=== PATIENT | female | born 1925 | race Two or more races ===

== ENCOUNTER 2016-06-21 23:53 | Inpatient (IN) | payer OTHER ==
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
[2016-06-22] MEDS ORDERED: IPRATROPIUM/ALBUTEROL 3 ML DEYVIAL IH ONE (00:23)
--- NOTE | 2016-06-22 00:27 | CPEKG ---
Heart Rate: 88 RR Interval: 682 P-R Interval: 180 QRSD Interval: 140 QT Interval: 400 QTC Interval: 484 P Parker: -24 QRS Parker: -60 T Wave Parker: 103 EKG Severity - ABNORMAL ECG - EKG Impression: SINUS RHYTHM EKG Impression: RBBB AND LAFB EKG Impression: CONSIDER LEFT VENTRICULAR HYPERTROPHY Electronically Signed By: Estiven Culver 22-Jun-2016 07:29:26
[2016-06-22 00:51] LABS: % IMMATURE GRANULYOCYTES 0.6 % (0.0-1.1); ABSOLUTE IMMATURE GRANULOCYTES 0.05 10^3/uL (0.00-0.10); ADD DIFF? NO; ADD MORPH? NO; ADD SCAN? NO; ATYPICAL LYMPHOCYTE FLAG 0 (0-99); FRAGMENT RBC FLAG 0 (0-99); HEMATOCRIT 35.9 % (38.0-47.0); HEMOGLOBIN 12.3 g/dL (12.6-16.3); LEFT SHIFT FLG 0 (0-99); LIPEMIA HEMOLYSIS FLAG 90 (0-99); MEAN CELL HEMOGLOBIN 36.7 pg (27.9-34.1); MEAN CELL HEMOGLOBIN CONCENTR. 34.3 g/dL (32.4-36.7); MEAN CELL VOLUME 107.2 fL (81.5-99.8); MEAN PLATELET VOLUME 10.2 fL (8.7-11.7); PLATELET CLUMPS FLAG 0 (0-99); PLATELET COUNT 258 10^3/uL (150-400); RED BLOOD CELL COUNT 3.35 10^6/uL (4.18-5.33); RED CELL DISTRIBUTION WIDTH 14.5 % (11.5-15.2)
[2016-06-22 00:54] LABS: BASE EXCESS 2.1 mEq/L (-2.5-2.5); BICARBONATE 26 mEq/L (22-26); MEASURED OXYGEN SATURATION 92 % (92-95); PCO2 41 mmHg (34-38); PO2 66 mmHg (65-75); TCO2 28 mEq/L (23-27)
[2016-06-22 00:54] LABS: ALANINE AMINOTRANSFERASE 29 IU/L (9-52); ALBUMIN 3.9 g/dL (3.5-5.0); ALKALINE PHOSPHATASE 91 IU/L (38-126); ANION GAP 13 mEq/L (8-16); ASPARTATE AMINOTRANSFERASE 44 IU/L (14-46); BILIRUBIN,TOTAL 0.7 mg/dL (0.1-1.4); BILIRUBIN-CONJUGATED 0.5 mg/dL (0.0-0.5); BILIRUBIN-UNCONJUGATED 0.2 mg/dL (0.0-1.1); CALCIUM 9.2 mg/dL (8.5-10.4); CARBON DIOXIDE 28 mEq/l (22-31); CHLORIDE 93 mEq/L (97-110); CREATININE 1.2 mg/dL (0.6-1.0); GLOMERULAR FILTRATION RATE 42; GLUCOSE 92 mg/dL (70-100); POTASSIUM 4.9 mEq/L (3.5-5.2); SODIUM 134 mEq/L (134-144); TOTAL PROTEIN 9.2 g/dL (6.3-8.2)
[2016-06-22 01:03] LABS: INR 1.09 (0.83-1.16)
[2016-06-22 01:14] LABS: TROPONIN I 0.015 ng/mL (0-0.034)
[2016-06-22] MEDS ORDERED: NS 1,000 ML IV ONE (01:15)
[2016-06-22] MEDS ORDERED: IOPAMIDOL (ISOVUE-300) 100 ML BTL IV ONE (01:27)
[2016-06-22] MEDS ORDERED: AZITHROMYCIN IV 500 MG in D5W 250 ML IV ONE (02:00)
[2016-06-22] MEDS ORDERED: ONDANSETRON 4 MG/2 ML VIAL IVP PRN (03:24)
[2016-06-22] MEDS ORDERED: ONDANSETRON DISINTEGRATING 4 MG TAB PO PRN (03:24)
[2016-06-22] MEDS ORDERED: PROMETHAZINE HCL 25 MG/ML INJ IVP PRN (03:24)
[2016-06-22] MEDS ORDERED: ALBUTEROL 3 ML DEYVIAL IH PRN (03:24)
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
[2016-06-22] MEDS ORDERED: IPRATROPIUM/ALBUTEROL 3 ML DEYVIAL ONE (05:55)
[2016-06-22] MEDS ORDERED: ACETYLCYSTEINE 20% IH/PO 30 ML VIAL ONE (05:56)
[2016-06-22] MEDS ORDERED: methylPREDNISolone SOD SUCC 125 MG/2 ML VIAL ONE (05:56)
[2016-06-22] MEDS: methylPREDNISolone SOD SUCC 125 MG/2 ML VIAL IVP SCH ×3 (06:06→17:06)
[2016-06-22] MEDS: IPRATROPIUM/ALBUTEROL 3 ML DEYVIAL IH SCH ×4 (06:06→22:11)
[2016-06-22] MEDS: ACETYLCYSTEINE 10% 30 ML VIAL IH SCH ×4 (06:06→22:11)
[2016-06-22] MEDS ORDERED: ENOXAPARIN 40 MG/0.4 ML SYR SC SCH (09:00)
[2016-06-22] MEDS ORDERED: AZITHROMYCIN IV 500 MG in D5W 250 ML IV SCH ×3 (09:00→21:00)
[2016-06-22] MEDS: ENOXAPARIN 30 MG/0.3 ML SYR SC SCH (10:52)
[2016-06-22] MEDS: FUROSEMIDE 40 MG TAB PO SCH (12:45)
[2016-06-22] MEDS: oxyCODONE IR 5 MG TAB PO PRN ×2 (17:06→23:02)
[2016-06-22] MEDS ORDERED: BENZONATATE 100 MG CAP PO PRN (19:22)
--- NOTE | 2016-06-22 19:22 | HOSPPROG ---
Hospitalist Progress Note Assessment/Plan: H&P by Dr. Ny reviewed. Patient seen and examined. Agree with plan as outlined. I will follow up in am. Objective: Vital Signs Temp Pulse Resp BP Pulse Ox 36.4 C 60 18 119/76 95 06/22/16 16:00 06/22/16 16:45 06/22/16 16:45 06/22/16 16:00 06/22/16 16:45 06/21/16 06/22/16 06/23/16 05:59 05:59 05:59 Intake Total 1410 Balance 1410 PT 14.0 SEC (12.0-15.0) 06/22/16 00:30 INR 1.09 (0.83-1.16) 06/22/16 00:30 ICD10 Worksheet Patient Problems: Problems Problem Status Onset Hypoxia Acute Pneumonia Acute Chronic Disease Mgmt/Transitional Care Acute Diastolic CHF Acute
[2016-06-22] MEDS: METOPROLOL SUCCINATE XR 25 MG TAB PO SCH (23:01)
[2016-06-22] MEDS: ACETAMINOPHEN 325 MG TAB PO PRN (23:02)
[2016-06-23] MEDS: ACETYLCYSTEINE 10% 30 ML VIAL IH SCH ×2 (05:52→11:34)
[2016-06-23] MEDS: IPRATROPIUM/ALBUTEROL 3 ML DEYVIAL IH SCH ×4 (05:52→21:00)
[2016-06-23 05:54] LABS: % IMMATURE GRANULYOCYTES 0.6 % (0.0-1.1); ABSOLUTE IMMATURE GRANULOCYTES 0.03 10^3/uL (0.00-0.10); ADD DIFF? NO; ADD MORPH? NO; ADD SCAN? NO; ATYPICAL LYMPHOCYTE FLAG 30 (0-99); FRAGMENT RBC FLAG 0 (0-99); HEMATOCRIT 30.3 % (38.0-47.0); HEMOGLOBIN 10.6 g/dL (12.6-16.3); LEFT SHIFT FLG 0 (0-99); LIPEMIA HEMOLYSIS FLAG 90 (0-99); MEAN CELL HEMOGLOBIN 37.5 pg (27.9-34.1); MEAN CELL VOLUME 107.1 fL (81.5-99.8); MEAN PLATELET VOLUME 10.2 fL (8.7-11.7); PLATELET CLUMPS FLAG 0 (0-99); PLATELET COUNT 205 10^3/uL (150-400); RED BLOOD CELL COUNT 2.83 10^6/uL (4.18-5.33)
[2016-06-23 06:04] LABS: ANION GAP 7 mEq/L (8-16); CALCIUM 8.9 mg/dL (8.5-10.4); CARBON DIOXIDE 24 mEq/l (22-31); CHLORIDE 95 mEq/L (97-110); CREATININE 0.9 mg/dL (0.6-1.0); GLOMERULAR FILTRATION RATE 59; GLUCOSE 141 mg/dL (70-100); POTASSIUM 4.6 mEq/L (3.5-5.2); SODIUM 126 mEq/L (134-144)
[2016-06-23] MEDS: LEVOTHYROXINE 88 MCG TAB PO SCH (07:05)
[2016-06-23] MEDS ORDERED: NON-FORMULARY NEW DRUG (Omeprazole [Prilosec 20 Mg] 20 MG) PO SCH (09:00)
[2016-06-23] MEDS ORDERED: NS 1,000 ML IV SCH (09:15)
[2016-06-23] MEDS: SPIRONOLACTONE 25 MG TAB PO SCH (09:45)
[2016-06-23] MEDS: VALSARTAN 160 MG TAB PO SCH (09:45)
[2016-06-23] MEDS: predniSONE 20 MG TAB PO SCH (09:45)
[2016-06-23] MEDS: ACETAMINOPHEN 325 MG TAB PO PRN ×2 (09:45→21:07)
[2016-06-23] MEDS: PANTOPRAZOLE SODIUM 40 MG TAB PO SCH (09:45)
[2016-06-23] MEDS: ASPIRIN 81 MG CHEWABLE TAB PO SCH (09:45)
[2016-06-23] MEDS: ENOXAPARIN 30 MG/0.3 ML SYR SC SCH (12:29)
[2016-06-23] MEDS: ENOXAPARIN 40 MG/0.4 ML SYR SC SCH (12:30)
--- NOTE | 2016-06-23 16:19 | HOSPPROG ---
Hospitalist Progress Note Assessment/Plan: * Acute on chronic respiratory failure - improved -baseline 3-4L * Pneumonia -ceftriaxone, azithro * RAD exac -prednisone, nebs * Pulmonary fibrosis / UIP * Dementia -family provides 06/11 care Subjective: Feeling better, less SOB Objective: Vital Signs Temp Pulse Resp BP Pulse Ox 36.5 C 62 20 176/84 H 97 06/23/16 15:10 06/23/16 15:10 06/23/16 15:10 06/23/16 15:10 06/23/16 15:10 Microbiology 06/23/16 12:33 - Final Sputum, Expectorated 06/23/16 09:25 - Final Sputum, Expectorated Sputum Culture - Final Laboratory Results 06/23/16 05:28 06/23/16 05:28 06/22/16 06/23/16 06/24/16 05:59 05:59 05:59 Intake Total 1410 Balance 1410 PT 14.0 SEC (12.0-15.0) 06/22/16 00:30 INR 1.09 (0.83-1.16) 06/22/16 00:30 - Physical Exam Constitutional: no apparent distress, appears nourished, not in pain Cardiovascular: regular rate and rhythym, no murmur, rub, or gallop Respiratory: no respiratory distress, inspiratory crackles, No expiratory wheeze , No rhonchi Gastrointestinal: normoactive bowel sounds, soft, non-tender abdomen, no palpable masses Skin: no rashes or abrasions, no fluctuance, no induration Psychiatric: interacting appropriately, not encephalopathic, poor insight, No agitated ICD10 Worksheet Patient Problems: Problems Problem Status Onset Hypoxia Acute Pneumonia Acute Chronic Disease Mgmt/Transitional Care Acute Diastolic CHF Acute
[2016-06-23] MEDS ORDERED: AZITHROMYCIN 250 MG TAB PO SCH (21:00)
[2016-06-23] MEDS: METOPROLOL SUCCINATE XR 25 MG TAB PO SCH (21:05)
[2016-06-23] MEDS: oxyCODONE IR 5 MG TAB PO PRN (21:07)
[2016-06-24] MEDS: LEVOTHYROXINE 88 MCG TAB PO SCH (05:22)
[2016-06-24 05:37] LABS: % IMMATURE GRANULYOCYTES 0.5 % (0.0-1.1); ABSOLUTE IMMATURE GRANULOCYTES 0.03 10^3/uL (0.00-0.10); ADD DIFF? NO; ADD MORPH? NO; ADD SCAN? NO; ATYPICAL LYMPHOCYTE FLAG 80 (0-99); FRAGMENT RBC FLAG 0 (0-99); HEMATOCRIT 31.8 % (38.0-47.0); HEMOGLOBIN 10.8 g/dL (12.6-16.3); LEFT SHIFT FLG 0 (0-99); LIPEMIA HEMOLYSIS FLAG 90 (0-99); MEAN CELL HEMOGLOBIN 36.1 pg (27.9-34.1); MEAN CELL VOLUME 106.4 fL (81.5-99.8); PLATELET CLUMPS FLAG 0 (0-99); PLATELET COUNT 216 10^3/uL (150-400); RED BLOOD CELL COUNT 2.99 10^6/uL (4.18-5.33); RED CELL DISTRIBUTION WIDTH 13.9 % (11.5-15.2)
[2016-06-24 05:45] LABS: ANION GAP 9 mEq/L (8-16); CALCIUM 9.2 mg/dL (8.5-10.4); CARBON DIOXIDE 27 mEq/l (22-31); CHLORIDE 95 mEq/L (97-110); GLOMERULAR FILTRATION RATE 52; GLUCOSE 98 mg/dL (70-100); POTASSIUM 4.7 mEq/L (3.5-5.2); SODIUM 131 mEq/L (134-144)
[2016-06-24] MEDS: IPRATROPIUM/ALBUTEROL 3 ML DEYVIAL IH SCH ×2 (05:59→10:36)
[2016-06-24 08:04] VITALS: BP 123/51; TEMP 98.8
[2016-06-24] MEDS: ASPIRIN 81 MG CHEWABLE TAB PO SCH (09:38)
[2016-06-24] MEDS: FUROSEMIDE 40 MG TAB PO SCH (09:38)
[2016-06-24] MEDS: predniSONE 20 MG TAB PO SCH (09:38)
[2016-06-24] MEDS: PANTOPRAZOLE SODIUM 40 MG TAB PO SCH (09:38)
[2016-06-24] MEDS: SPIRONOLACTONE 25 MG TAB PO SCH (09:38)
[2016-06-24] MEDS: VALSARTAN 160 MG TAB PO SCH (09:38)
[2016-06-24] MEDS: ENOXAPARIN 40 MG/0.4 ML SYR SC SCH (09:39)
[2016-06-24 10:46] VITALS: PULSE 66; RESP 12; O2SAT 95
--- NOTE | 2016-06-24 11:03 | GDS ---
[f rep st] DISCHARGE SUMMARY DIAGNOSES: 1. Community-acquired pneumonia. 2. Interstitial pulmonary fibrosis with chronic respiratory failure. 3. Coronary artery disease. 4. Diastolic dysfunction. 5. Hypothyroidism. 6. Question acid reflux. HOSPITAL COURSE: The patient is an 89-year-old with a history significant for interstitial pulmonar y fibrosis with chronic respiratory failure who comes in feeling weak and confused. On evaluation, she had a chest and thoracic angiogram which revealed no PE, lymphadenitis, which may be a possible infiltrate in the left lower lobe. She was placed on antibiotics for community-acquired pneumonia. Over the course of her hospitalization, she did improve to a point where her family felt safe taking her home. She was cleared by Physical Therapy. CONDITION ON DISCHARGE: Good. VITAL SIGNS: She is afebrile, heart rate 57, blood pressure 123/51. She is 93% on 4 L and has been afebrile. GENERAL: She is alert. LUNGS: Bilateral crackles. HE ART: Regular. She has no edema. DISCHARGE MEDICATIONS: Please see discharge medication form. She will be discharged on Ceftin and Zithromax as well as Tessalon Perles as needed. She was started on Protonix, will continue that for the short term, and her primary care provider can decide on continuing that long-term or not, as th ere was a question of possible acid reflux contributing to her pulmonary symptoms. FOLLOWUP INSTRUCTIONS: She should follow up with [facility] early next week. Of note, she did have significant cerumen in her right ear without pain, and I did give instructions to clean that o ut. That needs to be checked on her followup appointment as well. Total time spent with the patient and family on day of discharge and coordination of care was 35 min utes. Copy requested to: [facility] /[id number]/MODL
== END 2016-06-24 11:22 | disposition home or self-care (01) | DRG 193 ==
LOC: F3E 06-22 08:00
PROVIDERS: ADMIT Internal Medicine; ATTEND Internal Medicine
DX: J18.9 Pneumonia, unspecified organism (principal); J96.21 Acute and chronic respiratory failure with hypoxia; J84.10 Pulmonary fibrosis, unspecified; E03.9 Hypothyroidism, unspecified; I25.10 Atherosclerotic heart disease of native coronary artery without angina pectoris; I25.2 Old myocardial infarction; I10 Essential (primary) hypertension; Z99.81 Dependence on supplemental oxygen; E87.1 Hypo-osmolality and hyponatremia; K21.9 Gastro-esophageal reflux disease without esophagitis; I50.30 Unspecified diastolic (congestive) heart failure
CPT/HCPCS: 92610-GN; 96365; 97161-GP; 97165-GO; J0456; J0696; J1650; Q9967

== ENCOUNTER 2016-11-21 12:19 | Inpatient (IN) | payer OTHER ==
--- NOTE | 2016-11-21 13:04 | CPEKG ---
Heart Rate: 71 RR Interval: 845 P-R Interval: 196 QRSD Interval: 142 QT Interval: 444 QTC Interval: 483 P Billings: -13 QRS Billings: -50 T Wave Billings: 143 EKG Severity - ABNORMAL ECG - EKG Impression: SINUS RHYTHM EKG Impression: RIGHT BUNDLE BRANCH BLOCK EKG Impression: LVH WITH IVCD AND SECONDARY REPOL ABNRM EKG Impression: LATERAL INFARCT, AGE INDETERMINATE Electronically Signed By: Petra Zaragoza 21-Nov-2016 17:07:12
[2016-11-21 13:19] LABS: % IMMATURE GRANULYOCYTES 0.3 % (0.0-1.1); ABSOLUTE IMMATURE GRANULOCYTES 0.02 10^3/uL (0.00-0.10); ADD DIFF? NO; ADD MORPH? NO; ADD SCAN? NO; ATYPICAL LYMPHOCYTE FLAG 0 (0-99); FRAGMENT RBC FLAG 0 (0-99); HEMATOCRIT 35.6 % (38.0-47.0); HEMOGLOBIN 12.4 g/dL (12.6-16.3); LEFT SHIFT FLG 0 (0-99); LIPEMIA HEMOLYSIS FLAG 90 (0-99); MEAN CELL HEMOGLOBIN 38.2 pg (27.9-34.1); MEAN CELL HEMOGLOBIN CONCENTR. 34.8 g/dL (32.4-36.7); MEAN CELL VOLUME 109.5 fL (81.5-99.8); MEAN PLATELET VOLUME 10.4 fL (8.7-11.7); PLATELET CLUMPS FLAG 0 (0-99); PLATELET COUNT 273 10^3/uL (150-400); RED BLOOD CELL COUNT 3.25 10^6/uL (4.18-5.33); RED CELL DISTRIBUTION WIDTH 13.3 % (11.5-15.2)
[2016-11-21 13:29] LABS: ANION GAP 10 mEq/L (8-16); CALCIUM 10.1 mg/dL (8.5-10.4); CARBON DIOXIDE 27 mEq/l (22-31); CHLORIDE 95 mEq/L (97-110); CREATININE 1.5 mg/dL (0.6-1.0); GLOMERULAR FILTRATION RATE 33; GLUCOSE 104 mg/dL (70-100); POTASSIUM 4.7 mEq/L (3.5-5.2); SODIUM 132 mEq/L (134-144)
[2016-11-21 13:41] LABS: TROPONIN I < 0.012 ng/mL (0-0.034)
--- NOTE | 2016-11-21 15:31 | EDPHY ---
H & P Stated Complaint: Increasing SOB past 2-3 days;cough Time Seen by Provider: 11/21/16 13:18 HPI/ROS: CHIEF COMPLAINT: Short of breath, weakness HISTORY OF PRESENT ILLNESS: This is an 89-year-old female with a history of interstitial pulmonary fibrosis, CAD, and diastolic heart failure on 5 L nasal cannula oxygen chronically. She also has coronary artery disease with diastolic dysfunction. She presents today with worsening shortness of breath, requiring more oxygen at home. She denies chest pain. No recent fever. She has chronic cough, no change. Family members chose to act as interpreters (patient is Kiswahili speaking) and also provided much of the history as the patient has dementia and is a poor historian in general. Patient lives with her daughter. REVIEW OF SYSTEMS: A ten point review of systems was performed and is negative with the exception of the items mentioned in the HPI. ROS obtained from family members and patient. Source: Patient, Family Exam Limitations: Language barrier (Auto Phone Installer available and offered, family members comfortable interpreting) - Personal History Current Tetanus Diphtheria and Acellular Pertussis (TDAP): Unsure - Medical/Surgical History PMH: 1. Interstitial pulmonary fibrosis 2. CAD 3. Diastolic heart failure 4. Dementia 5. GERD 6. HTN 7. PE Hx Asthma: No Hx Chronic Respiratory Disease: Yes Hx Diabetes: No Hx Cardiac Disease: Yes Hx Renal Disease: No Hx Cirrhosis: No Hx Alcoholism: No Hx HIV/AIDS: No Hx Splenectomy or Spleen Trauma: No - Social History Smoking Status: Never smoked Alcohol Use: None Additional Social History: She lives with her daughter. She has 12 children and large extended family in the and [place]. No smoking. No alcohol. - Physical Exam Exam: General: Elderly female. BP 103/58. HR 63. RR 16. T 36.6. O2 sat 97% on 4L oxymask. HEENT: Anicteric. No conjunctival injection. Oropharynx without erythema or edema. Dry mucous membranes.' Neck: Nontender over cervical spine. JVD is present. No lymphadenopathy. Lungs: Distant breath sounds. Crackles bilaterally at bases. Heart: RRR, 2/6 murmur, no rub, no gallop. Abdomen: Soft, nontender, nondistended. Normal bowel sounds. Extremities: No clubbing, cyanosis. No calf tenderness with trace BLE edema. Neuro: Awake, alert. PERRL. EOMI. Tongue midline. Facial expressions symmetric. Moving all four extremities spontaneoulsy. Psych: No agitation. Constitutional: Initial Vital Signs Heart Rate 90 11/21/16 12:20 Respiratory Rate 20 11/21/16 12:20 Blood Pressure 142/96 H 11/21/16 12:20 O2 Sat (%) 95 11/21/16 12:20 O2 Delivery Mode Nasal Cannula O2 (L/minute) 4 Allergies/Adverse Reactions: No Known Allergies Allergy (Verified 06/22/16 00:05) Home Medications: Medication Instructions Recorded Aspirin [Aspirin 81mg (*)] 81 mg PO DAILY 08/14/14 Levothyroxine [Synthroid 88 mcg 88 mcg PO DAILY06 08/14/14 (*)] Calcium Carb W/Vit D [Calcium Carb 500 mg PO BID 06/22/16 W/Vit D 500/200 (*)] Metoprolol Succinate Xr [Toprol Xl 25 mg PO HS 06/22/16 25 mg (*)] Omeprazole [Prilosec 20 mg] 20 mg PO DAILY 06/22/16 Acetaminophen [Tylenol 325mg (*)] 650 mg PO Q4HRS PRN #0 tab 11/23/16 Docusate Sodium [Colace 100 MG (*)] 100 mg PO BID cap 11/23/16 Ipratropium/Albuterol [Duoneb (*)] 3 ml IH QID #60 deyvial 11/23/16 LORazepam [Ativan] 1 mg PO Q6 PRN #30 tablet 11/23/16 morphINE [Roxanol 10 mg/0.5 ml 5 mg PO Q2 #1 btl 11/23/16 oral soln (*)] oxyCODONE IR [Oxycodone Ir (*)] 5 mg PO Q4HRS PRN #30 tab 11/23/16 Medical Decision Making - Diagnostics EKG Interpretation: EKG interpreted by me in [employer]. Compared to previous, no change. RBBB. Imaging Results: CXR reviewed, radiology report reviewed. Interstitial pulmonary disease with element of CHF. Imaging: I viewed and interpreted images myself ED Course/Re-evaluation: 89 year old female with multiple medical problems including interstitial pulmonary fibrosis on O2 at home with worsening shortness of breath. She is requiring 4L per oxymask in the ED to maintain oxygen saturation mid 90s. I suspect worsening of her chronic lung disease along with possible pulmonary edema (per CXR and radiologist's report). She was given a small dose of IV lasix in the ED (she is on diuretics at home). BNP is 1130. Fluid management will require close watching as she also appears dehydrated on exam and has BUN of 47 with creatinine of 1.5. Initial troponin normal. EKG reviewed--sinus, RBBB, no acute ischemic changes. She reportedly has a remote history of PE. I am recommending hospitalization and family agrees. It is my sense that her management at home has become more and more difficult. Code status not known, will need to be addressed. Differential Diagnosis: I considered a ddx of acute on chronic respiratory failure (interstitial lung disease), CHF, ACS, pneumonia, PE. - Data Points Laboratory Results: Laboratory Results 11/21/16 13:05 11/21/16 13:05 Medications Given: Discontinued Medications Albuterol/Ipratropium (Duoneb) 3 ml IH QID HIMANSHU Stop: 05/20/17 20:59 Last Admin: 11/23/16 11:59 Dose: 3 ml Aspirin (Aspirin) 81 mg PO DAILY HIMANSHU Stop: 05/21/17 08:59 Last Admin: 11/23/16 09:33 Dose: 81 mg Docusate Sodium (Colace) 100 mg PO BID HIMANSHU Stop: 05/22/17 11:14 Last Admin: 11/23/16 12:48 Dose: 100 mg Enoxaparin Sodium (Lovenox) 30 mg SC DAILY HIMANSHU Stop: 05/21/17 08:59 Last Admin: 11/23/16 09:37 Dose: 30 mg Furosemide (Lasix Injection) 20 mg IVP EDNOW ONE Stop: 11/21/16 15:33 Last Admin: 11/21/16 16:08 Dose: 20 mg Sodium Chloride (Ns) 1,000 mls @ 75 mls/hr IV CONT HIMANSHU Stop: 11/22/16 10:34 Last Admin: 11/21/16 21:47 Dose: 1,000 mls Levothyroxine Sodium (Synthroid) 88 mcg PO DAILY06 HIMANSHU Stop: 05/21/17 05:59 Last Admin: 11/23/16 06:20 Dose: 88 mcg Metoprolol Succinate (Toprol Xl) 25 mg PO HS HIMANSHU Stop: 05/20/17 20:59 Last Admin: 11/22/16 21:16 Dose: 25 mg Oxycodone HCl (Oxycodone Ir) 5 mg PO Q4HRS PRN PRN Reason: Pain, Severe Able to Take PO Stop: 12/02/16 17:51 Last Admin: 11/23/16 12:58 Dose: 5 mg Pantoprazole Sodium (Protonix) 40 mg PO DAILY HIMANSHU Stop: 05/21/17 08:59 Last Admin: 11/23/16 09:33 Dose: 40 mg Potassium Chloride (Klor-Con) 20 meq PO DAILY HIMANSHU Stop: 05/20/17 16:59 Last Admin: 11/23/16 09:34 Dose: 20 meq Prednisone (Prednisone) 40 mg PO DAILY HIMANSHU Stop: 05/20/17 16:59 Last Admin: 11/22/16 08:49 Dose: 40 mg Departure - Departure Disposition: [facility] Acute Clinical Impression: Acute exacerbation of congestive heart failure Qualifiers: Congestive heart failure type: diastolic Qualified Code(s): I50.33 - Acute on chronic diastolic (congestive) heart failure Acute and chronic respiratory failure Qualifiers: Respiratory failure complication: hypoxia Qualified Code(s): J96.21 - Acute and chronic respiratory failure with hypoxia Condition: Fair
[2016-11-21] MEDS ORDERED: FUROSEMIDE 20 MG/2 ML VIAL IVP ONE (15:32)
[2016-11-21] MEDS ORDERED: ONDANSETRON DISINTEGRATING 4 MG TAB PO PRN (15:59)
[2016-11-21] MEDS ORDERED: ONDANSETRON 4 MG/2 ML VIAL IVP PRN (15:59)
[2016-11-21] MEDS ORDERED: ACETAMINOPHEN 325 MG TAB PO PRN (15:59)
--- NOTE | 2016-11-21 18:02 | GHP ---
[f rep st] HISTORY AND PHYSICAL DATE OF ADMISSION: 11/21/2016 CHIEF COMPLAINT: Shortness of breath. HISTORY OF PRESENT ILLNESS: This patient is an 89-year-old female with a history of advanced interstitial pulmonary fibrosis, as well as coronary artery disease and chronic diastolic heart failure, who presents to the emergency department with worsening shortness of breath and cough. She has been living at home with her daughter. Over the past several days, they have noticed increased dyspnea on exertion. She can only walk a few steps from her chair before she becomes very short of breath. Most of the history is obtained per her daughter, as the patient is not a very good historian. They report a productive cough. There have been no fevers or chills. She has not complained of chest pain, but when I ask her in the emergency department she does report some chest pressure. She uses 5 L of oxygen at home which is her baseline. She has not been followed by a visual journalist for her pulmonary fibrosis. In the emergency department, workup was consistent with the heart failure exacerbation. She was given 20 mg of IV Lasix, and is admitted to the hospital for further management. PAST MEDICAL HISTORY: 1. Chronic hypoxemic respiratory failure secondary to interstitial pulmonary fibrosis, currently using 5 L of oxygen at baseline. 2. Coronary artery disease. 3. Diastolic heart failure. 4. History of CVA. 5. Dementia. 6. GERD. 7. Hypertension. 8. Hypothyroidism. 9. Moderate pulmonary hypertension. 10. History of pulmonary embolism. FAMILY HISTORY: Reviewed and noncontributory. SOCIAL HISTORY: The patient lives with her daughter. She is a lifetime nonsmoker. She has significant secondhand smoke exposure. She denies alcohol or drug use. She is . Had 12 children and a very large extended family in [place]. REVIEW OF SYSTEMS: A 10-point review of systems was performed and is negative, except as per HPI. PHYSICAL EXAMINATION: VITAL SIGNS: Temperature is 36.4, blood pressure 156/85 , heart rate 70, respiratory rate 18, she is 99% on her baseline of 5 L of oxygen. GENERAL: The patient is awake, alert and oriented. Appears fatigued. HEENT: The head is atraumatic, normocephalic. Pupils are equal, round, and reactive to light. Extraocular muscles are intact. Oropharynx is clear. Mucous membranes are moist. NECK: Supple. She has 8+ cm of JVD. HEART: Regular rate and rhythm with a 2/6 systolic ejection murmur. LUNGS: Bilateral crackles custodial up from the bases. There is a mild end-expiratory wheeze. ABDOMEN: Soft, nondistended, nontender, with normoactive bowel sounds. EXTREMITIES: She has trace bilateral lower extremity edema. NEUROLOGIC: Grossly nonfocal. LABORATORY DATA: CBC reveals a normal white count, hemoglobin 12.4, platelets are normal at 273. INR is pending. Basic metabolic panel is remarkable for a sodium of 132, potassium is normal 4.5, chloride 95, BUN 47, creatinine 1.5, blood glucose 104, calcium 10.1. Troponin is negative. NT proBNP is 1130, which is up from 880 five months ago. IMAGING: Chest x-ray is personally reviewed and interpreted. It is consistent with severe interstitial lung disease and extensive honeycombing, as seen on previous CT scans, as well as a suspicion for an element of heart failure with interstitial pulmonary edema. EKG shows normal sinus rhythm with a right bundle branch block. This is unchanged from prior. ASSESSMENT AND PLAN: This patient is an 89-year-old female with a history of interstitial pulmonary fibrosis and coronary artery disease, with chronic diastolic heart failure and chronic hypoxemic respiratory failure, who presents to the emergency department with increasing dyspnea. 1. Acute on chronic hypoxemic respiratory failure. Baseline O2 is 4-5 LPM, on 4 LPM here. She is likely experiencing worsening of her severe pulmonary fibrosis. Chest CT is performed and shows severe interstitial pulmonary fibrosis without alveolar edema, arguing against heart failure. She received IV Lasix in the emergency department. I will defer any further IV Lasix for now , given her elevated BUN and creatinine on arrival and will opt to give some gentle NS overnight. Will give nebs and oral Prednisone for presumed flare of her IPF. She does have a history of pulmonary embolism, although was not tachycardic on arrival. I will check a D-dimer. She is not a candidate for CT pulmonary angiogram, given her elevated creatinine at this time. If her D- dimer is significantly elevated, will consider pursuing a V/Q scan versus treating with heparin empirically tonight and reassessing her renal function in the morning. 2. Coronary artery disease. The patient does complain of some chest pressure. Her initial troponin is negative. There are no acute changes on her EKG. Will trend her troponin. She will be monitored on telemetry. An echo is pending to evaluate for wall motion abnormality. May warrant further risk stratification. 3. Acute kidney injury. As above, she has already received IV Lasix in the ER. Will defer any further IV Lasix for now, gentle IV hydration as above. Will check urine sodium and urine creatinine for further evaluation. I will hold her Aldactone and Diovan. 4. Weakness. PT and OT evaluations are ordered. She may require SNF rehab. CODE STATUS: I did discuss code status with the patient and her family. She wishes to be DNR. This will be honored. Palliative care consult is requested. DISPOSITION: The patient is admitted to inpatient status. She will likely require greater than 48 hours hospitalization for ongoing management of her acute on chronic respiratory failure with associated shortness of breath and overall weakness. /[id number]/MODL MTDD
[2016-11-21] MEDS: POTASSIUM CL 20 MEQ TAB PO SCH (18:08)
[2016-11-21 18:27] LABS: INR 1.07 (0.83-1.16); PROTIME(PATIENT) 13.8 SEC (12.0-15.0)
[2016-11-21] MEDS: predniSONE 20 MG TAB PO SCH (18:31)
[2016-11-21] MEDS: METOPROLOL SUCCINATE XR 25 MG TAB PO SCH (20:54)
[2016-11-21] MEDS ORDERED: NS 1,000 ML IV SCH (21:15)
[2016-11-21] MEDS: IPRATROPIUM/ALBUTEROL 3 ML DEYVIAL IH SCH (21:43)
[2016-11-22 05:16] LABS: HEMATOCRIT 32.2 % (38.0-47.0); HEMOGLOBIN 10.9 g/dL (12.6-16.3); MEAN CELL HEMOGLOBIN 37.7 pg (27.9-34.1); MEAN CELL HEMOGLOBIN CONCENTR. 33.9 g/dL (32.4-36.7); MEAN CELL VOLUME 111.4 fL (81.5-99.8); RED BLOOD CELL COUNT 2.89 10^6/uL (4.18-5.33); RED CELL DISTRIBUTION WIDTH 13.3 % (11.5-15.2)
[2016-11-22 05:38] LABS: ALBUMIN 3.6 g/dL (3.5-5.0); ANION GAP 13 mEq/L (8-16); CALCIUM 9.4 mg/dL (8.5-10.4); CARBON DIOXIDE 24 mEq/l (22-31); CHLORIDE 97 mEq/L (97-110); CREATININE 1.5 mg/dL (0.6-1.0); GLOMERULAR FILTRATION RATE 33; GLUCOSE 105 mg/dL (70-100); POTASSIUM 4.3 mEq/L (3.5-5.2); SODIUM 134 mEq/L (134-144)
[2016-11-22] MEDS: LEVOTHYROXINE 88 MCG TAB PO SCH (05:38)
[2016-11-22] MEDS: IPRATROPIUM/ALBUTEROL 3 ML DEYVIAL IH SCH ×4 (06:01→20:59)
[2016-11-22] MEDS: POTASSIUM CL 20 MEQ TAB PO SCH (08:49)
[2016-11-22] MEDS: PANTOPRAZOLE SODIUM 40 MG TAB PO SCH (08:49)
[2016-11-22] MEDS: predniSONE 20 MG TAB PO SCH (08:49)
[2016-11-22] MEDS: ASPIRIN 81 MG CHEWABLE TAB PO SCH (08:49)
[2016-11-22] MEDS: ENOXAPARIN 30 MG/0.3 ML SYR SC SCH (08:50)
[2016-11-22] MEDS ORDERED: FUROSEMIDE 20 MG/2 ML VIAL IVP SCH (09:00)
[2016-11-22] MEDS ORDERED: NON-FORMULARY NEW DRUG (Omeprazole [Prilosec 20 Mg] 20 MG) PO SCH (09:00)
[2016-11-22] MEDS ORDERED: ENOXAPARIN 40 MG/0.4 ML SYR SC SCH (09:00)
--- NOTE | 2016-11-22 09:50 | ECHO ---
[id number] + + [address] : : [place] [address] : : [phone] + + Adult Echocardiographic Report + ---------+ :Name: Carlton ESCALERA Date: 11/22/2016 08:30 AM BP: 106/47 m mHg : : Hospital Admission Number: [id number] Minna mcwilliams: 220: :: 1925 Gender: Female Height: 60 i n : :Age: 89 yrs Race: [facility] Weight: 154 lb : :Reason For Study: chf : : BSA: 1.7 met ers2 : :History: heart failure exacerbation : + ---------+ MMode/2D Measurements \T\ Calculations IVSd: 1.2 cm LVIDd: 2.9 cm FS: 43.3 % Ao root diam: LVPWd: 1.1 cm LVIDs: 1.7 cm EDV(Teich): 33.0 ml3.1 cm ESV(Teich): 7.9 ml EF(Teich): 76.1 % LVOT diam: 1.8 cm LVLd ap4: 7.3 cm SV(MOD-sp4): LVOT area: EDV(MOD-sp4): 52.0 ml 2.5 cm2 74.0 ml LVLs ap4: 6.1 cm ESV(MOD-sp4): 22.0 ml EF(MOD-sp4): 70.3 % Normal Measurement Values: + + :LVIDd (3.5-5.7cm) IVSd (0.6-1.1cm) LVPWd (0.6-1.1cm) Aortic Root (2.0-3.7cm)Left Atrium (1.5-4.0cm): :LV Vol(d) (76-115ml) LV Vol(s) (29-48ml) Ejec Fraction (50-65%)PV Tulio (0.6- 1.2m/s) TV Tulio (0.4-1.0m/s) : :MV E Tulio (0.8-1.0m/s)MV A Tulio (0.3-1.0m/s)LVOT Tulio (0.7-1.2m/s) Asc Ao Tulio ( 0.9-1.8m/s) : + + Doppler Measurements \T\ Calculations MV E max tulio: Ao V2 max: LV V1 max: PA V2 max: 60.7 cm/sec 112.0 cm/sec 106.0 cm/sec 86.9 cm/sec MV A max tulio: Ao max PG: LV V1 max PG: PA max P.8 cm/sec 5.0 mmHg 4.5 mmHg 3.0 mmHg MV E/A: 0.68 LETA(V,D): 2.4 cm2 MV dec time: 0.30 sec TR max tulio: 216.0 cm/sec TR max P.7 mmHg RAP systole: 5.0 mmHg RVSP(TR): 23.7 mmHg Left Ventricle The left ventricle is normal in size and function. There is mild concentric left ventricular hypertrophy. Ejection Fraction = 70-75%. Diastolic function is normal for age. No regional wall motion abnormalities noted. Right Ventricle The right ventricle is normal in size and function. Atria The left atrial size is normal. Right atrial size is normal. Mitral Valve The mitral valve is normal in structure and function. There is no mitral valve stenosis. There is no mitral regurgitation noted. Tricuspid Valve The tricuspid valve is normal in structure and function. There is no tricuspid stenosis. There is trace to mild tricuspid regurgitation. TR envelope not well visualized therefore unable to accurately estimate RVSP. Aortic Valve The aortic valve is trileaflet. Mild to moderate calcification of the non- coronary aortic leaflet. There is no aortic stenosis. Trace aortic regurgitation. Pulmonic Valve The pulmonic valve is normal in structure and function. Mild pulmonic valvular regurgitation. Great Vessels The aortic root is normal size. Pericardium/Pleural There is no pericardial effusion. Conclusion A two-dimensional transthoracic echocardiogram with M-mode and Doppler was performed. The left ventricle is normal in size and function. There is mild concentric left ventricular hypertrophy. Ejection Fraction = 70-75%. There is trace to mild tricuspid regurgitation. TR envelope not well visualized therefore unable to accurately estimate RVSP. Mild to moderate calcification of the non-coronary aortic leaflet. Trace aortic regurgitation. Mild pulmonic valvular regurgitation. Tissue Doppler suggests normal filling pressures. Final Reading Physician: Cheyenne Hui signed on 11/22/2016 09:49 AM Ordering Physician: Cata Chakraborty Performed By: Jeanine Carr
--- NOTE | 2016-11-22 14:32 | HOSPPROG ---
Hospitalist Progress Note Assessment/Plan: 89-year-old female with known interstitial fibrosis presenting with increasing shortness of breath # Acute on chronic hypoxic respiratory failure- CT chest(personally reviewed and interpreted) worsening interstitial lung fibrosis Patient with known pulmonary hypertension- no outpatient animal cruelty investigator secondary to lack of insurance Given IV steroids on admission- WBC 7.2 this a.m. 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 to idiopathic pulmonary fibrosis - echo ordered to evaluate pulmonary pressures and right heart function # Dementia- family reporting waxing/waning short-term memory deficits- they report she is near baseline - discussed the case management disposition options for increased support # h/o CVA - continue aspirin # CAD - denies chest pain - continue aspirin and beta-reji # prophylaxis enoxaparin # diet cardiac # disposition- greater than 2 midnights asking palliative Care to consult considering possible hospice options I have discussed the case with the RN- will continue current care discussing hospice as the disposition options Subjective: Denies chest pain Objective: Vital Signs Temp Pulse Resp BP Pulse Ox 36.6 C 81 28 H 103/58 L 95 11/22/16 12:28 11/22/16 12:28 11/22/16 12:28 11/22/16 12:28 11/22/16 12:28 Laboratory Results 11/22/16 04:32 11/22/16 04:32 11/21/16 11/22/16 11/23/16 05:59 05:59 05:59 Intake Total 440 Output Total 725 Balance -285 PT 13.8 SEC (12.0-15.0) 11/21/16 18:10 INR 1.07 (0.83-1.16) 11/21/16 18:10 - Physical Exam Constitutional: appears nourished Eyes: anicteric sclera Ears, Nose, Mouth, Throat: moist mucous membranes Cardiovascular: regular rate and rhythym Respiratory: inspiratory crackles Gastrointestinal: normoactive bowel sounds, soft, non-tender abdomen Genitourinary: no bladder fullness Skin: warm, normal color Musculoskeletal: No asymmetric calves Neurologic: AAOx3 Psychiatric: flat affect Lymph, Heme, Immunologic: no cervical LAD ICD10 Worksheet Patient Problems: Problems Problem Status Onset Acute exacerbation of congestive heart failure Acute Chronic Disease Mgmt/Transitional Care Acute Diastolic CHF Acute Hypoxia Acute Pneumonia Acute
--- NOTE | 2016-11-22 15:58 | PDPCPN ---
Palliative Care Progress Note Assessment/Plan: Referring provider: Dr Chakraborty Reason for consult: Complex medical decision making Symptom control HPI: Gillian Zambrano is a 89 yo female with PMH interstitial pulmonary fibrosis, diastolic CHF, CVA, CAD, and mild dementia admitted to the hospital for increased SOB and cough. D dimer elevated on admission ct chest negative for PE with showing progressive lung disease. Started on nebs and steroids for possible acute resp distress. On oxy mask at 4 L. Palliative care consulted for complex medical decision making. Met with Gillian and multiple family members at the bedside this afternoon ( including 4 of her children) with help of albanian interrupter. Gillian feels she is doing ok, maybe with a little more coughing today but otherwise at baseline. At home she uses a walker with no help, she is very proud of this. Her family states they have noticed a decline with getting weaker over the past 3 months. Discussed the medical status with progressing pul fibrosis and no cure. Gillian states she does not want to in a hospital and prefers to be at home surrounded by her family. She has a strong sense of nahid in God and his will to help her live well for as long as he desires. She states everyone has an end and she is not afraid to . She does feel she gets anxious and SOB because of her coughing and breathing. She worries about struggling for breath. Discussed role of hospice care to help keep someone at home who is near end of life and provide support and comfort at home rather than in the hospital. She stated this is what she wants and family agrees. Assessment: Physical: - Pain: none noted -tylenol PRN - Dyspnea: severe at times - oxygen as needed - can try very small dose of roxanol 2mg PO Q2hr PRN - constipation - at risk if on opiates, bowel protocol with senna and colace Emotional/psychological: Anxiety: due to dyspnea above Advanced Care Planning: Is patient decisional?: Yes Code Status: DNR/DNI POA: unsure who is MDPOA Plan: Gillian does not want to return back to the hospital and instead has her trust in God for whatever time she has left. Family would like to speak with hospice for home hospice on discharge. Will need bigger oxygen concentrator before discharge which can be supplied by hospice. Subjective: I'm feeling ok Objective: Social History: Lives with family. Has 12 children. Originally [place]. Enjoys cooking and making tortillas for her family. Jehovah witness. Medication list reviewed ROS: General: fatigue, weakness ENT: negative Resp: dyspnea, cough GI: negative : negative MS: negative Skin: negative Neuro: negative Psych: negative Functional assessment: PPS: 50% Functional status: needs some assistance with ADLs. Vital Signs Temp Pulse Resp BP Pulse Ox 36.6 C 81 28 H 103/58 L 95 11/22/16 12:28 11/22/16 12:28 11/22/16 12:28 11/22/16 12:28 11/22/16 12:28 Laboratory Results 11/22/16 04:32 11/22/16 04:32 11/21/16 11/22/16 11/23/16 05:59 05:59 05:59 Intake Total 440 Output Total 725 Balance -285 PT 13.8 SEC (12.0-15.0) 11/21/16 18:10 INR 1.07 (0.83-1.16) 11/21/16 18:10 Physical Exam - Physical Exam General Appearance: alert, no apparent distress Respiratory: No respiratory distress, No accessory muscle use Skin: normal color, warm/dry Extremities: No pedal edema Neuro/Psych: alert, oriented x 3 ICD10 Worksheet Patient Problems: Problems Problem Status Onset Acute exacerbation of congestive heart failure Acute Palliative care encounter Acute Chronic Disease Mgmt/Transitional Care Acute Diastolic CHF Acute Hypoxia Acute Pneumonia Acute - ICD10 Problem Qualifiers (1) Palliative care encounter
[2016-11-22] MEDS: oxyCODONE IR 5 MG TAB PO PRN ×2 (17:59→23:17)
[2016-11-22] MEDS: METOPROLOL SUCCINATE XR 25 MG TAB PO SCH (21:16)
[2016-11-23] MEDS: IPRATROPIUM/ALBUTEROL 3 ML DEYVIAL IH SCH ×2 (05:41→11:59)
[2016-11-23] MEDS: LEVOTHYROXINE 88 MCG TAB PO SCH (06:20)
[2016-11-23 07:58] VITALS: BP 118/68; TEMP 97.6
[2016-11-23] MEDS: oxyCODONE IR 5 MG TAB PO PRN ×2 (08:31→12:58)
[2016-11-23] MEDS: ASPIRIN 81 MG CHEWABLE TAB PO SCH (09:33)
[2016-11-23] MEDS: PANTOPRAZOLE SODIUM 40 MG TAB PO SCH (09:33)
[2016-11-23] MEDS: POTASSIUM CL 20 MEQ TAB PO SCH (09:34)
[2016-11-23] MEDS: ENOXAPARIN 30 MG/0.3 ML SYR SC SCH (09:37)
[2016-11-23] MEDS ORDERED: DOCUSATE SODIUM 100 MG CAP PO SCH (11:15)
--- NOTE | 2016-11-23 11:21 | PDIAF ---
- Diagnosis Diagnosis: idopathic pulmonary fibrosis Code Status: Do Not Resuscitate - Medication Management Discharge Medications: Medications to Continue on Transfer Aspirin [Aspirin 81mg (*)] 81 mg PO DAILY 08/14/14 [Last Taken 11/21/16] Levothyroxine [Synthroid 88 mcg (*)] 88 mcg PO DAILY06 08/14/14 [Last Taken 11/30] Calcium Carb W/Vit D [Calcium Carb W/Vit D 500/200 (*)] 500 mg PO BID 06/22/16 [ Last Taken 11/21/16] Metoprolol Succinate Xr [Toprol Xl 25 mg (*)] 25 mg PO HS 06/22/16 [Last Taken 11/20/16] Omeprazole [Prilosec 20 mg] 20 mg PO DAILY 06/22/16 [Last Taken 11/21/16] Acetaminophen [Tylenol 325mg (*)] 650 mg PO Q4HRS PRN #0 tab 11/23/16 [Last Taken Unknown] Docusate Sodium [Colace 100 MG (*)] 100 mg PO BID cap 11/23/16 [Last Taken Unknown] oxyCODONE IR [Oxycodone Ir (*)] 5 mg PO Q4HRS PRN #30 tab 11/23/16 [Last Taken Unknown] Discharge Medications: Refer to the Discharge Home Medication list for PRN reason. - Orders Services needed: Home Care, Registered Nurse Home Care Face to Face: I certify that this patient was under my care and that I had the required [id number] encounter meeting the encounter requirements on the discharge day. My findings support the fact that the patient is homebound as defined in CMS Chapter 7 Medicare Benefits Manual 30.1.1, The condition of the patient is such that there exists a normal inability to leave home and consequently, leaving home would require a considerable and taxing effort. Diet Texture: Regular Texture Diet, Thin Liquids, Meds Whole w/Liquids Additional: Hospice eval and treat - Follow Up Care Current Providers and Referrals: Aleta Morrison PA [Primary Care Provider] - As per Instructions
[2016-11-23 13:16] VITALS: PULSE 67; RESP 26; O2SAT 95
--- NOTE | 2016-11-23 16:44 | GDS ---
[f rep st] DISCHARGE SUMMARY DISCHARGE DIAGNOSES: Include: 1. Progressing idiopathic pulmonary fibrosis. 2. Pulmonary hypertension. 3. Dementia. 4. Coronary artery disease. 5. History of cerebrovascular accident. 6. [id number] hypoxic respiratory failure secondary to lung fibrosis. CONSULTATIVE SERVICES: Include Palliative Care. PROCEDURES: On 11/21/2016, patient had a CT of the chest that showed markedly progressed idiopathic pulmonary fibrosis and worsening pulmonary hypertension. HOSPITAL COURSE BY ISSUE: 1. [id number] hypoxic respiratory failure. After reviewing the images with Pulmonary and dis cussing with the family, we feel confident the patient is having progression of her underlying idiop athic pulmonary fibrosis. After extensive discussions about the lack of ongoing treatment for this condition and the patient's age at nearly 89, the decision was made by the patient and family to pro ceed with hospice care. The patient is being discharged on inhaled medications and supplemental oxy gen for comfort and with palliative care/hospice for treatment and assistance with progression of di sease after returning home. 2. Dementia. The patient has had waxing and waning neurologic exams. Again, discussed the progres sive nature of this condition with the family. They are comfortable discharging home with hospice. 3. Coronary artery disease. Patient's blood pressures were borderline low. We have held her 2 diu retics and her ARB at discharge. Again, she will return home with family and hospice. MEDICATIONS AT THE TIME OF DISPOSITION: Please reference the med rec printed on 11/23/2016. FOLLOWUP APPOINTMENTS: Include with home hospice at discharge. PENDING STUDIES: At the time of this dictation are none. TIME SPENT: I spent greater than 30 minutes in the planning and coordination of this discharge. /[id number]/MODL
== END 2016-11-23 14:21 | disposition hospice, home (50) | DRG 196 ==
LOC: F2W 16:24
PROVIDERS: ADMIT Hospitalist; ATTEND Hospitalist
DX: J84.112 Idiopathic pulmonary fibrosis (principal); J96.21 Acute and chronic respiratory failure with hypoxia; I27.2 Other secondary pulmonary hypertension; I25.10 Atherosclerotic heart disease of native coronary artery without angina pectoris; F03.90 Unspecified dementia, unspecified severity, without behavioral disturbance, psychotic disturbance, mood disturbance, and anxiety; K21.9 Gastro-esophageal reflux disease without esophagitis; I10 Essential (primary) hypertension; Z66 Do not resuscitate; Z86.73 Personal history of transient ischemic attack (TIA), and cerebral infarction without residual deficits
CPT/HCPCS: 92610-GN; J1650; J1940